=== PATIENT | male | born 1950 | race Caucasian/White ===

== ENCOUNTER 2022-08-18 08:01 | Outpatient (CLI) | payer OTHER | END 2022-08-18 08:03 | disposition home or self-care (01) | LOC: NUCLEAR 08:01 | PROVIDERS: ATTEND Family Medicine | DX: I87.2 Venous insufficiency (chronic) (peripheral) (principal) ==

== ENCOUNTER 2024-12-29 13:54 | Emergency (ER) | payer OTHER ==
[~2024-12-29] VITALS: Ht 175.3 cm; Wt 146.5 kg
[2024-12-29] MEDS ORDERED: DILANTIN30 MG (14:03)
[2024-12-29] MEDS ORDERED: ELIQUIS2.5 MG (14:03)
[2024-12-29] MEDS ORDERED: APIXABAN 2.5 MG TABLET PO ONE (15:30)
[2024-12-29 16:29] LABS: URINE APPEARANCE Clear; URINE BILIRRUBIN Negative (NEGATIVE); URINE BLOOD Negative; URINE COLOR Yellow; URINE GLUCOSE Negative (NEGATIVE); URINE KETONE Trace (NEGATIVE); URINE LEUKOCYTE Negative; URINE NITRATE Negative; URINE PROTEIN Negative (NEGATIVE); URINE UROBILINOGEN 1.0 E.U./dl
[2024-12-29 16:33] LABS: URINE BACTERIA 11.9 uL (0.0-1933); URINE EPITHELIAL CELLS 9.0 uL (0.0-38.8); URINE RBC 6.5 uL (0.0-20.8); URINE WBC 4.1 uL (0.0-23.2)
[2024-12-29 16:56] LABS: TYPE CELLS SQUAMOUS; URINE CAST 0.43 uL (0.0-1.40)
== END 2024-12-29 19:00 | disposition left against medical advice (07) ==
LOC: ER 13:54
PROVIDERS: Emergency Medicine
DX: R42 Dizziness and giddiness (principal)